=== PATIENT | female | born 1995 | race African-American/Black ===

== ENCOUNTER 2017-04-27 07:05 | Emergency (ER) | payer MEDICAID ==
[~2017-04-27] VITALS: Ht 162.6 cm; Wt 50.0 kg
[2017-04-27 07:10] VITALS: BP 109/79
== END 2017-04-27 13:03 | disposition left against medical advice (07) ==
LOC: ER 07:22
DX: R10.9 Unspecified abdominal pain (principal); Z53.21 Procedure and treatment not carried out due to patient leaving prior to being seen by health care provider

== ENCOUNTER 2024-04-09 13:14 | Emergency (ER) | payer MEDICAID ==
[~2024-04-09] VITALS: Ht 165.1 cm; Wt 59.0 kg
[2024-04-09 13:24] VITALS: O2SAT 99
[2024-04-09 13:34] VITALS: BP 107/66; PULSE 82; RESP 18; TEMP 98.2; O2SAT 100
[2024-04-09] MEDS ORDERED: ALBU18HF2 IH (15:49)
== END 2024-04-09 15:55 | disposition home or self-care (01) ==
LOC: ER 13:35
DX: Z76.0 Encounter for issue of repeat prescription (principal); F12.10 Cannabis abuse, uncomplicated; J45.901 Unspecified asthma with (acute) exacerbation
CPT/HCPCS: 99281